=== PATIENT | male | born 1980 | race Caucasian/White ===

== ENCOUNTER 2018-04-14 22:43 | Emergency (ER) | payer MEDICAID ==
[~2018-04-14] VITALS: Ht 165.1 cm; Wt 102.1 kg
[2018-04-14 22:52] VITALS: Ht 165.1 cm; Wt 102.1 kg
[2018-04-14 23:14] VITALS: BP 139/92
== END 2018-04-14 23:14 | disposition home or self-care (01) ==
LOC: ED 22:43
DX: L03.116 Cellulitis of left lower limb (principal); E78.00 Pure hypercholesterolemia, unspecified